=== PATIENT | female | born 1970 | race Caucasian/White ===

== ENCOUNTER 2016-09-29 19:05 | Emergency (ER) | payer OTHER ==
[2016-09-29 19:20] VITALS: RESP 16
[2016-09-29] MEDS ORDERED: RX INFO: IV CONTRAST WAS GIVEN 1 EACH MISC MISCELLANE PRN (19:41)
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
[2016-09-29 20:00] LABS: Basophils # (A) 0.1 k/uL (0-0.2); Basophils % (A) 1 %; CH 32.2; Eosinophils # (A) 0.4 k/uL (0-0.7); Eosinophils % (A) 4 %; HCT 41.9 % (34.0-46.0); HDW 2.18; HGB 14.2 gm/dL (11.4-16.0); Luc # (Auto) 0.18; Luc % (Auto) 2; Lymphocytes # (A) 2.6 k/uL (1.0-4.8); Lymphocytes % (A) 28 %; MCH 32.3 pg (25.0-35.0); MCHC 33.9 g/dL (31.0-37.0); MCV 95.2 fL (80.0-100.0); Monocytes # (A) 0.6 k/uL (0-1.0); Monocytes % (A) 7 %; Neutrophils # (A) 5.3 k/uL (1.3-7.7); Neutrophils % (A) 58 %; RDW 14.5 % (11.5-15.5); WBC 9.2 k/uL (3.8-10.6); WBC (Perox) 9.19
[2016-09-29 20:11] LABS: ALT 54 U/L (9-52); AST 40 U/L (14-36); Alcohol <10 mg/dL; Alkaline Phosphatase 95 U/L (38-126); Anion Gap 11 mmol/L; Blood Urea Nitrogen 12 mg/dL (7-17); Calcium 9.4 mg/dL (8.4-10.2); Carbon Dioxide 22 mmol/L (22-30); Chloride 105 mmol/L (98-107); Glucose 123 mg/dL (74-99); Non-African American GFR(MDRD) >60 (>60 ml/min/1.73 sqM); Potassium 4.1 mmol/L (3.5-5.1); Sodium 138 mmol/L (137-145); Total Bilirubin 0.4 mg/dL (0.2-1.3); Total Protein 7.1 g/dL (6.3-8.2)
[2016-09-29 20:20] LABS: Partial Thromboplastin Time 25.9 sec (22.0-30.0); Prothrombin Time 10.2 sec (9.0-12.0)
[2016-09-29 20:21] LABS: Creatine Kinase 56 U/L (30-135)
[2016-09-29 20:33] LABS: Creatine Kinase MB 0.4 ng/mL (0.0-2.4); Troponin I <0.012 ng/mL (0.000-0.034)
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
[2016-09-29] MEDS ORDERED: HYDROcodone/APAP 5-325MG 1 EACH TAB PO STA (21:02)
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
[2016-09-30 01:44] LABS: Appearance,Urine Clear (Clear); Bilirubin,Urine Negative (Negative); Glucose,Urine (UA) Negative (Negative); Ketones,Urine Negative (Negative); Leukocyte Esterase,Urine Negative (Negative); Nitrite,Urine Negative (Negative); Protein,Urine Negative (Negative); Specific Gravity,Urine 1.006 (1.001-1.035); UA Billing (MACRO vs. MICRO) CHEM; Urobilinogen,Urine <2.0 mg/dL (<2.0)
[2016-09-30] MEDS ORDERED: Acetaminophen-Codeine 300-30mg TAB PO STA (02:40)
[2016-09-30] MEDS ORDERED: ACET/COD 300 MG/30 MG STARTER PACK 6 TAB BTL PO STA (03:12)
[2016-09-30 03:47] VITALS: BP 131/94; PULSE 90; TEMP 97.4
== END 2016-09-30 03:15 | disposition home or self-care (01) ==
LOC: EC 19:05
DX: S19.9XXA Unspecified injury of neck, initial encounter (principal); S29.9XXA Unspecified injury of thorax, initial encounter; R00.0 Tachycardia, unspecified; R10.84 Generalized abdominal pain; I10 Essential (primary) hypertension; E78.5 Hyperlipidemia, unspecified; F31.9 Bipolar disorder, unspecified; F41.9 Anxiety disorder, unspecified; F17.200 Nicotine dependence, unspecified, uncomplicated; Z90.49 Acquired absence of other specified parts of digestive tract; Z88.6 Allergy status to analgesic agent; Z79.899 Other long term (current) drug therapy; V47.5XXA Car driver injured in collision with fixed or stationary object in traffic accident, initial encounter; Y92.410 Unspecified street and highway as the place of occurrence of the external cause
CPT/HCPCS: 99285; 36415; 93005; 86900; 86901; 80053; 82550; 82553; 84484; 85025; 85610; 85730; 86850; 81003; 80306; 80320; 71010; 72170; 72125; 70450; 71260; 74177; Q9967

== ENCOUNTER 2017-12-09 15:20 | Inpatient (IN) | payer MEDICAID, OTHER ==
[2017-12-09] MEDS ORDERED: diphenhydrAMINE 50 MG/ML 1 ML VIAL IM STA (15:58)
[2017-12-09] MEDS ORDERED: HALOPERIDOL LACTATE 5 MG/ML 1 ML VIAL IM STA (15:58)
[2017-12-09] MEDS ORDERED: LORazepam 2 MG/ML INJ IM STA (15:58)
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
[2017-12-09 17:19] LABS: Basophils % (A) 0 %; Eosinophils # (A) 0.1 k/uL (0-0.7); Eosinophils % (A) 1 %; HCT 42.2 % (34.0-46.0); HGB 14.3 gm/dL (11.4-16.0); Lymphocytes # (A) 2.1 k/uL (1.0-4.8); Lymphocytes % (A) 27 %; MCH 31.1 pg (25.0-35.0); MCV 91.4 fL (80.0-100.0); Mean Platelet Volume 7.3; Monocytes # (A) 0.5 k/uL (0-1.0); Monocytes % (A) 6 %; Neutrophils % (A) 64 %; Platelet Count 260 k/uL (150-450); RBC 4.61 m/uL (3.80-5.40); RDW 12.8 % (11.5-15.5); WBC 7.8 k/uL (3.8-10.6)
[2017-12-09 17:54] LABS: ALT 27 U/L (9-52); AST 21 U/L (14-36); Albumin 4.4 g/dL (3.5-5.0); Alkaline Phosphatase 73 U/L (38-126); Anion Gap 13 mmol/L; Blood Urea Nitrogen 13 mg/dL (7-17); Calcium 9.6 mg/dL (8.4-10.2); Carbon Dioxide 21 mmol/L (22-30); Chloride 104 mmol/L (98-107); Glucose 82 mg/dL (74-99); Potassium 3.7 mmol/L (3.5-5.1); Sodium 138 mmol/L (137-145); Total Bilirubin 0.9 mg/dL (0.2-1.3); Total Protein 6.8 g/dL (6.3-8.2)
[2017-12-09] MEDS ORDERED: MAG HYDROX/AL HYDROX/SIMETH 30 ML CUP PO PRN (19:15)
[2017-12-09] MEDS ORDERED: ZIPRASIDONE 20 MG VIAL IM PRN (19:15)
[2017-12-09] MEDS ORDERED: MAGNESIUM HYDROXIDE 2,400 MG/10 ML CUP PO PRN (19:15)
[2017-12-09] MEDS ORDERED: LORazepam 2 MG/ML INJ IM PRN (19:19)
[2017-12-09 19:53] VITALS: BMI 20.9
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
[2017-12-10 02:04] LABS: Cholesterol 249 mg/dL (<200); HDL Cholesterol 34 mg/dL (40-60); LDL Cholesterol,Calculated 195 mg/dL (0-99); Triglycerides 102 mg/dL (<150)
[2017-12-10] MEDS: NICOTINE 21MG/24HR PATCH TRANSDERM SCH (09:30)
[2017-12-10] MEDS: LORazepam 1 MG TAB PO PRN (09:32)
[2017-12-10 12:05] LABS: Hemoglobin A1C 5.2 % (4.0-6.0)
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
[2017-12-10] MEDS: ARIPiprazole 2 MG TAB PO SCH (14:04)
[2017-12-11] MEDS: LORazepam 1 MG TAB PO PRN (04:15)
[2017-12-11] MEDS: ARIPiprazole 2 MG TAB PO SCH (08:16)
[2017-12-11] MEDS: NICOTINE 21MG/24HR PATCH TRANSDERM SCH (08:17)
--- NOTE | 2017-12-11 13:06 | P.PN ---
Progress Note - Text Progress Note Date: 12/11/17 Interval History: Patient is a 47-year-old female who was seen today and she reports that she's feeling slightly better, she states that she slept somewhat last night and is not feeling as confused. She states that the auditory hallucinations are still present and she is still concerned about her daughter because she is not been able to contact her and and is unsure if she is okay or not due to what the voices were telling her. She states that she'll be suicidal if something is wrong with her daughter but denies suicidal thoughts otherwise. She reports that she still feeling jittery and anxious. Mental Status:Appearance/Attitude: Patient is dressed in a hospital gown, was found sleeping in her room, she makes intermittent eye contact and was cooperative. Behavior: Patient was jittery and anxious during the interview but did not display any psychomotor retardation Speech/Language: Patient's speech was more spontaneous, of normal volume and rhythm and she was coherent Thought Process: Patient was more goal-directed however continue to be tangential at times Thought Content: Patient reports that she continues to hear voices that are making derogatory comments as well as threats to her daughter she denied any visual hallucinations and states that she still paranoid and worried that something bad is happening to her daughter she's been unable to contact her today. Patient states that her thinking is beginning to clear and she is not feeling as confused as she was on admission. Patient states that she did sleep somewhat last night but was up and down. She reports that she is feeling jittery and anxious. She states that she is eating Suicidal/Homicidal Ideation: Patient denies any current suicidal or homicidal ideation but states that if her daughter is not okay she will think of suicide Sensorium/Cognition: Patient is alert and oriented to person, situation and date and her recent and remote memory are grossly intact and her focus and attention are improving Mood/Affect: Patient's mood is anxious jittery and paranoid and her affect is appropriate to her mood Insight/Judgment: patient's insight and judgment remain poor Assessment: patient states that she's beginning to clear and is feeling less confused but continues to have auditory hallucination and continues to feel paranoid that something is happening to her daughter and states that something has she will think about suicide. Patient did sleep 6 hours last night but she was up and down. Patient states that she's feeling jittery and anxious and requested to take something. Patient has been in her room and has not been attending groups or activities. Plan: patient continue on Abilify 2 mg and will continue to titrate the dose to target her symptoms of psychosis and mood. Patient was encouraged to attend groups or activities. Patient continues to require hospitalization to further stabilize her mood and psychotic symptoms.
[2017-12-11] MEDS: hydrOXYzine PAMOATE 25 MG CAP PO PRN (17:26)
[2017-12-11 19:27] LABS: Appearance,Urine Clear (Clear); Bilirubin,Urine Negative (Negative); Blood,Urine Negative (Negative); Color,Urine Light Yellow; Glucose,Urine (UA) Negative (Negative); Ketones,Urine Negative (Negative); Leukocyte Esterase,Urine Negative (Negative); Nitrite,Urine Negative (Negative); Protein,Urine Negative (Negative); Specific Gravity,Urine 1.004 (1.001-1.035); Urobilinogen,Urine <2.0 mg/dL (<2.0)
[2017-12-11 19:39] LABS: Amphetamine Screen,Urine Detected (NotDetected); Barbiturate Screen,Urine Not Detected (NotDetected); Benzodiazepines Screen,Urine Detected (NotDetected); Cocaine Screen,Urine Not Detected (NotDetected); Methadone Screen, Urine Not Detected (NotDetected); Opiate Screen,Urine Not Detected (NotDetected); Oxycodone Screen, Urine Not Detected (NotDetected); Phencyclidine Screen,Urine Not Detected (NotDetected); Tricyclic Antidepressant,Urine Not Detected (NotDetected); Urn Cannabinoid Scrn Detected (NotDetected)
[2017-12-12] MEDS ORDERED: LORazepam 1 MG TAB ONE (00:39)
[2017-12-12] MEDS: NICOTINE 21MG/24HR PATCH TRANSDERM SCH (08:21)
[2017-12-12] MEDS: ARIPiprazole 2 MG TAB PO SCH (08:22)
[2017-12-12] MEDS: ACETAMINOPHEN TAB 325 MG TAB PO PRN (08:22)
[2017-12-12] MEDS: hydrOXYzine PAMOATE 25 MG CAP PO PRN ×3 (08:22→20:44)
[2017-12-12] MEDS: LORazepam 1 MG TAB PO PRN ×2 (10:55→18:05)
--- NOTE | 2017-12-12 14:17 | P.PN ---
Progress Note - Text Progress Note Date: 12/12/17 Interval History: Patient is a 47-year-old female who was seen today and she reports that her thinking is clearing, she states that she was able to speak with her daughter yesterday and so she is no longer worried something is happening to her. Patient states that she still suspicious about things and still is hearing voices but they are getting less. She states that she has not been attending groups because she is continuing to rest. She states that she had not been sleeping at all when she was at home due to taking Adderall. When I questioned how much Adderall she had been taking she stated that she had been taking twice the prescribed dose which would've been equivalent of 120 mg a day. Patient states that she slept about 5 hours last night Mental Status: Appearance/Attitude: Patient is dressed in a hospital gown, makes intermittent eye contact and was cooperative Behavior: Patient did not exhibit any psychomotor agitation or retardation. Speech/Language: Patient's speech is spontaneous of normal volume and rhythm and she is coherent. Thought Process: Patient's thoughts are more goal-directed, she is able to respond to questions appropriately Thought Content: Patient states that she continues to hear voices although they are declining in intensity, she states that she is still suspicious about things occurring to her daughter but hasn't spoken with her and knows that she is okay. She denied any for visual hallucinations. Patient states that she slept about 5 hours last night and continues to feel tired. Suicidal/Homicidal Ideation: Patient denied any suicidal or homicidal ideation at this time Sensorium/Cognition: Patient is alert and oriented to person, place, time and her recent and remote memory are grossly intact. Patient states that her focus and concentration are improving and she feels that her thinking is more organized Mood/Affect: Patient's mood is less guarded and her affect is appropriate to her mood, patient states that she had a good response to the Vistaril for her jitteriness. Insight/Judgment: Patient's insight and judgment are fair Assessment: Patient shows improved thinking, she is more organized in her thoughts and better able to respond to questions. She continues to report voices which she states are declining in intensity as well as still feeling suspicious but was able to speak with her daughter yesterday and knows that nothing is wrong with her. Patient states that she continues to stay in bed and sleeping because she states she needs to rest. Patient was using double the amount of Adderall at home as she was prescribed. Patient reports no side effects from the Abilify. She is not attending groups or activities Plan: Patient's Abilify will be increased to 5 mg to target her psychotic symptoms, she continues to have Vistaril 25 mg every 6 hours as needed for her complaints of anxiety and patient continues to require hospitalization to further target her psychotic symptoms. Patient was encouraged to stay awake during the day and attend groups and activities.
[2017-12-13] MEDS: hydrOXYzine PAMOATE 25 MG CAP PO PRN ×3 (08:02→20:29)
[2017-12-13] MEDS: ARIPiprazole 5 MG TAB PO SCH (08:03)
[2017-12-13] MEDS: NICOTINE 21MG/24HR PATCH TRANSDERM SCH (08:19)
[2017-12-13] MEDS: LORazepam 1 MG TAB PO PRN ×2 (12:12→19:13)
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
[2017-12-14] MEDS ORDERED: LORazepam 1 MG TAB ONE (03:08)
[2017-12-14] MEDS ORDERED: hydrOXYzine PAMOATE 25 MG CAP ONE (03:08)
[2017-12-14] MEDS: ARIPiprazole 5 MG TAB PO SCH (09:03)
[2017-12-14] MEDS: hydrOXYzine PAMOATE 25 MG CAP PO PRN ×2 (09:04→16:33)
[2017-12-14] MEDS ORDERED: ARIPiprazole 5 MG TAB PO STA (10:32)
[2017-12-14] MEDS: NICOTINE 21MG/24HR PATCH TRANSDERM SCH (10:40)
[2017-12-14] MEDS: LORazepam 0.5 MG TAB PO PRN ×2 (10:56→22:50)
--- NOTE | 2017-12-14 12:23 | P.PN ---
Progress Note - Text Progress Note Date: 12/14/17 Interval History: Patient is a 47-year-old female who was seen today and she reports that she is still not sleeping well at night, she states she has been ruminating about everything. She states that she continues to think about all the stuff that his occurred in the past and is continuing to feel anxious and upset about it. She states that she is not worried about something horrible happening but does ruminate about past events. She reports that she is not having any side effects from the medication and states that she still feels anxious and on edge during the day. Patient states that she has attempted to attend some groups and activities but didn't sleep at all last night and is extremely tired this morning Mental Status: Appearance/Attitude: Patient is casually dressed and makes good eye contact and was cooperative. Behavior: Patient does not display any psychomotor agitation or retardation however she appeared edgy and anxious this morning Speech/Language: Patient's speech is spontaneous of normal volume and rhythm and she is coherent Thought Process: Patient is goal-directed she is more organized in her thoughts and still some difficulty discussing past events especially regarding her relationship with her ex-boyfriend. Thought Content: Agent denies any auditory or visual hallucinations and no delusions or paranoid ideation were elicited. She states that she continues to ruminate and go over everything but is not worried about something horrible happening. Patient states that she didn't sleep at all last night and is feeling anxious and jittery during the day. She states that she is eating fairly well. Suicidal/Homicidal Ideation: Patient denies any current suicidal or homicidal ideation Sensorium/Cognition: Patient is alert and oriented to person, place, and time and her recent and remote memory are grossly intact. Mood/Affect: Patient's mood remains edgy and depressed, her affect appropriate to her mood Insight/Judgment: Patient's insight and judgment are fair Assessment: Patient states that she didn't sleep well at all last night due to ruminating about past events but she states she is not as worried about something horrible happening to her daughter or to herself. She states that she is thinking better, is better able to discuss her concerns in our meeting and she was on admission. There is still some difficulty in her discussing past events especially regarding her ex-boyfriend. Patient states that she is not feeling paranoid and is not hearing voices. Patient is attempting to attend groups and activities. Patient reports no side effects from the medication. Plan: Patient's Abilify will be increased to 10 mg to target her mood and psychotic symptoms. Patient will also be given melatonin 3 mg at bedtime to assist with sleep and continue on Vistaril 25 every 6 when necessary to target her anxiety. Patient was encouraged to attend groups and activities. Patient continues to require hospitalization to further stabilize her mood and psychotic symptoms.
[2017-12-14] MEDS: ACETAMINOPHEN TAB 325 MG TAB PO PRN (16:30)
[2017-12-14] MEDS: MELATONIN 3 MG TABLET PO SCH (20:56)
[2017-12-15] MEDS: hydrOXYzine PAMOATE 25 MG CAP PO PRN ×3 (04:01→20:56)
[2017-12-15] MEDS: ACETAMINOPHEN TAB 325 MG TAB PO PRN (04:02)
[2017-12-15] MEDS: NICOTINE 21MG/24HR PATCH TRANSDERM SCH (08:09)
[2017-12-15] MEDS: LORazepam 0.5 MG TAB PO PRN ×2 (08:09→18:15)
[2017-12-15] MEDS: ARIPiprazole 10 MG TAB PO SCH (08:09)
--- NOTE | 2017-12-15 11:54 | P.PN ---
Progress Note - Text Interval history: The patient is found the hallway she follows me to an interview room. She reports feeling distressed as she is not sleeping. She states she knows that they are recording she is sleeping 7 hours a night but she states it is not restful and she feels tired all of the time. She describes having ongoing anxiety throughout the day. She asked that I restart her on Seroquel or Depakote or "something powerful". We discussed the changes her brain is undergoing given her recent history of stimulants. She admits to excessively using Adderall for numerous days prior to this admission. She reports that she is eating and attempting to attend groups. Mental status exam: The patient is alert she seated calmly in the chair. She is cooperative. She describes a distraught mood and describes feelings of anxiety. She states she feels exhausted. She is reporting no suicidal or homicidal thoughts. She endorses no auditory or visual hallucinations stating "those are much better". She relays no feelings of persecution or paranoia. Insight and judgment limited. She demonstrates no verbal or physical aggressiveness she demonstrates no abnormal involuntary movements. Plan: The patient will continue on her current medications I will increase the strength of the Vistaril. We will continue to monitor her for safety. Vital signs reviewed.
[2017-12-15] MEDS: MELATONIN 3 MG TABLET PO SCH (20:55)
[2017-12-16] MEDS: LORazepam 0.5 MG TAB PO PRN ×2 (00:20→13:25)
[2017-12-16] MEDS: hydrOXYzine PAMOATE 25 MG CAP PO PRN ×2 (08:10→18:02)
[2017-12-16] MEDS: NICOTINE 21MG/24HR PATCH TRANSDERM SCH (08:11)
[2017-12-16] MEDS: ARIPiprazole 10 MG TAB PO SCH (08:11)
--- NOTE | 2017-12-16 10:11 | P.PN ---
Progress Note - Text Interval history: The patient is found in her room she follows me to an interview room. She reports that she is doing much better and that she's had an epiphany. She feels that after she slept throughout the night she understands things better and feels less paranoid. She has no questions or concerns regarding the Abilify. She states that she does not wish to take Adderall any longer. Mental status exam: The patient is awake she is mildly disheveled hygiene is adequate she is dressed in her own clothing. She reports her mood is much improved and she feels much better after sleeping last night. She is endorsing no auditory or visual hallucinations she is endorsing no specific delusions but there may still be some residual delusional thought content. Thought process can be linear but she becomes briefly disorganized at times. She demonstrates no verbal or physical aggressiveness. She remains calmly seated in the chair for the duration of the session. Speech is fluent spontaneous nonpressured. Insight and judgment slowly improving. Plan: The patient will continue on her current psychotropic medications. We will continue to monitor her for safety she is encouraged to participate in the milieu.
[2017-12-16] MEDS: MELATONIN 3 MG TABLET PO SCH (20:52)
[2017-12-17] MEDS: LORazepam 0.5 MG TAB PO PRN ×3 (02:32→20:37)
[2017-12-17 06:58] VITALS: RESP 16
[2017-12-17] MEDS: NICOTINE 21MG/24HR PATCH TRANSDERM SCH (08:49)
[2017-12-17] MEDS: ARIPiprazole 10 MG TAB PO SCH (08:50)
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
[2017-12-17] MEDS: hydrOXYzine PAMOATE 25 MG CAP PO PRN (15:59)
[2017-12-17] MEDS: MELATONIN 3 MG TABLET PO SCH (20:37)
[2017-12-18] MEDS: hydrOXYzine PAMOATE 25 MG CAP PO PRN (06:25)
[2017-12-18 06:31] VITALS: BP 152/68; PULSE 77; TEMP 97.8
[2017-12-18] MEDS: LORazepam 0.5 MG TAB PO PRN (08:21)
[2017-12-18] MEDS: NICOTINE 21MG/24HR PATCH TRANSDERM SCH (08:22)
[2017-12-18] MEDS: ARIPiprazole 10 MG TAB PO SCH (08:22)
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
== END 2017-12-18 12:26 | disposition home or self-care (01) | DRG 897 ==
LOC: EC 15:20 → 3MHU 18:26
PROVIDERS: ADMIT Psychiatry & Neurology Psychiatry; ATTEND Psychiatry & Neurology Psychiatry
DX: F15.159 Other stimulant abuse with stimulant-induced psychotic disorder, unspecified (principal); F41.9 Anxiety disorder, unspecified; I10 Essential (primary) hypertension; Z79.899 Other long term (current) drug therapy; Z91.5 Personal history of self-harm; Z88.8 Allergy status to other drugs, medicaments and biological substances
CPT/HCPCS: 36415; 80053; 80061; 80306; 81003; 81025; 82075; 83036; 84443; 85025; 96372; 99285

== ENCOUNTER 2018-10-21 17:17 | Observation (INO) | payer OTHER ==
[2018-10-21] MEDS ORDERED: ONDANSETRON 4 MG/2 ML VIAL IVP STA (18:08)
[2018-10-21] MEDS ORDERED: SODIUM CHLORIDE 0.9% 1,000 ML IV ONE (18:08)
[2018-10-21] MEDS ORDERED: ASPIRIN 81 MG PO STA (18:18)
[2018-10-21 18:20] LABS: Basophils # (A) 0.1 k/uL (0-0.2); Basophils % (A) 1 %; Eosinophils # (A) 0.3 k/uL (0-0.7); Eosinophils % (A) 3 %; HCT 48.3 % (34.0-46.0); HGB 15.9 gm/dL (11.4-16.0); Lymphocytes # (A) 3.2 k/uL (1.0-4.8); Lymphocytes % (A) 33 %; MCH 30.5 pg (25.0-35.0); MCV 92.6 fL (80.0-100.0); Mean Platelet Volume 7.5; Monocytes # (A) 0.3 k/uL (0-1.0); Monocytes % (A) 4 %; Neutrophils # (A) 5.7 k/uL (1.3-7.7); Neutrophils % (A) 59 %; Platelet Count 328 k/uL (150-450); RBC 5.22 m/uL (3.80-5.40); WBC 9.7 k/uL (3.8-10.6)
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
[2018-10-21 18:30] LABS: ALT 43 U/L (9-52); AST 28 U/L (14-36); Albumin 4.8 g/dL (3.5-5.0); Alkaline Phosphatase 70 U/L (38-126); Anion Gap 12 mmol/L; Blood Urea Nitrogen 9 mg/dL (7-17); Calcium 9.9 mg/dL (8.4-10.2); Carbon Dioxide 21 mmol/L (22-30); Chloride 109 mmol/L (98-107); Glucose 97 mg/dL (74-99); Potassium 3.7 mmol/L (3.5-5.1); Sodium 142 mmol/L (137-145); Total Bilirubin 0.3 mg/dL (0.2-1.3); Total Protein 7.7 g/dL (6.3-8.2)
--- NOTE | 2018-10-21 19:02 | XR ---
EXAMINATION TYPE: XR chest 2V DATE OF EXAM: 10/21/2018 COMPARISON: Prior chest x-ray 09/29/2016 HISTORY: Shortness of breath, chest pain TECHNIQUE: Frontal and lateral views of the chest are obtained. FINDINGS: There is no focal air space opacity, pleural effusion, or pneumothorax seen. The cardiac silhouette size is within normal limits. The osseous structures are intact. There are overlying car diac leads. IMPRESSION: No acute cardiopulmonary process.
[2018-10-21] MEDS ORDERED: NALOXONE 0.4 MG/ML 1 ML VIAL IV PRN (21:03)
[2018-10-22] MEDS: PRAZOSIN 1 MG CAP PO SCH ×2 (00:15→22:40)
[2018-10-22 04:12] LABS: Basophils % (A) 0 %; Eosinophils # (A) 0.3 k/uL (0-0.7); Eosinophils % (A) 4 %; HCT 42.6 % (34.0-46.0); HGB 13.8 gm/dL (11.4-16.0); Lymphocytes # (A) 1.9 k/uL (1.0-4.8); Lymphocytes % (A) 28 %; MCH 30.3 pg (25.0-35.0); MCHC 32.3 g/dL (31.0-37.0); MCV 93.9 fL (80.0-100.0); Monocytes # (A) 0.4 k/uL (0-1.0); Monocytes % (A) 6 %; Neutrophils % (A) 60 %; Platelet Count 275 k/uL (150-450); RBC 4.54 m/uL (3.80-5.40); RDW 13.9 % (11.5-15.5); WBC 6.8 k/uL (3.8-10.6)
[2018-10-22 04:23] LABS: Anion Gap 4 mmol/L; Blood Urea Nitrogen 13 mg/dL (7-17); Calcium 9.1 mg/dL (8.4-10.2); Carbon Dioxide 23 mmol/L (22-30); Chloride 112 mmol/L (98-107); Glucose 121 mg/dL (74-99); Potassium 4.1 mmol/L (3.5-5.1); Sodium 139 mmol/L (137-145)
[2018-10-22 08:26] LABS: Cholesterol 212 mg/dL (<200); HDL Cholesterol 31 mg/dL (40-60); LDL Cholesterol,Calculated 142 mg/dL (0-99); Triglycerides 193 mg/dL (<150)
[2018-10-22] MEDS ORDERED: ALPRAZolam 0.5 MG TAB PO PRN (08:42)
[2018-10-22] MEDS ORDERED: ATORVASTATIN 80 MG TAB PO STA (08:42)
[2018-10-22] MEDS ORDERED: NITROGLYCERIN SL TABS 0.4 MG TAB SUBLINGUAL PRN ×2 (08:42→11:01)
[2018-10-22] MEDS ORDERED: SODIUM CHLORIDE 0.9% 1,000 ML in EMPTY BAG 1 BAG IV ONE (08:42)
[2018-10-22] MEDS ORDERED: ALPRAZolam 0.25 MG TAB PO PRN (08:42)
[2018-10-22] MEDS ORDERED: ASPIRIN 325 MG TAB PO STA (08:42)
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
[2018-10-22] MEDS ORDERED: LIDOCAINE 1% INJ 10MG/ML (20 ML MDV) ONE (09:44)
[2018-10-22] MEDS ORDERED: VERAPAMIL 2.5 MG/ML 2 ML AMP ONE (09:44)
[2018-10-22] MEDS ORDERED: HEPARIN SODIUM 1,000 UN/ML (10ML VL) ONE (09:44)
[2018-10-22] MEDS ORDERED: SODIUM CHLORIDE 0.9% 1,000 ML IV ONE (09:50)
[2018-10-22] MEDS ORDERED: MIDAZOLAM (PF) 2 MG/2 ML VIAL IVP ONE ×2 (10:00→10:19)
[2018-10-22] MEDS ORDERED: LIDOCAINE 1% INJ 10MG/ML (20 ML MDV) SQ ONE ×2 (10:05→10:20)
[2018-10-22] MEDS ORDERED: HYDROmorphone 1 MG/ML 1 ML SYRINGE ONE (10:09)
[2018-10-22] MEDS ORDERED: VERAPAMIL SYRINGE (5 MG/10 ML) INTRAARTER ONE (10:11)
[2018-10-22] MEDS ORDERED: HEPARIN SODIUM 1,000 UN/ML (10ML VL) IV ONE (10:12)
[2018-10-22] MEDS ORDERED: HYDROmorphone 1 MG/ML 1 ML SYRINGE IVP ONE (10:12)
--- NOTE | 2018-10-22 10:15 | ECHOF ---
Referral Reason:cp, sob MEASUREMENTS -------- HEIGHT: 162.6 cm WEIGHT: 61.2 kg BP: 112/74 RVIDd: 2.8 cm (< 3.3) IVSd: 1.4 cm (0.6 - 1.1) LVIDd: 4.1 cm (3.9 - 5.3) LVPWd: 1.3 cm (0.6 - 1.1) IVSs: 1.8 cm LVIDs: 2.9 cm LVPWs: 1.4 cm LA Diam: 2.6 cm (2.7 - 3.8) LAESV Index (A-L): 12.68 ml/m Ao Diam: 3.5 cm (2.0 - 3.7) AV Cusp: 2.3 cm (1.5 - 2.6) MV EXCURSION: 16.269 mm (> 18.000) MV EF SLOPE: 76 mm/s (70 - 150) EPSS: 0.6 cm MV E Valdemar: 0.65 m/s MV DecT: 293 ms MV A Valdemar: 0.78 m/s MV E/A Ratio: 0.83 AV maxP.08 mmHg AV meanP.49 mmHg FINDINGS -------- Sinus rhythm. This was a technically adequate study. The left ventricular size is normal. There is moderate concentric left ventricular hypertrophy. O verall left ventricular systolic function is normal with, an EF between 60 - 65 %. The right ventricle is normal in size. Normal LA size by volume 22+/-6 ml/m2. The right atrium is normal in size. Aneurysmal Interatrial septum. The aortic valve was not well visualized. There is mild aortic valve sclerosis. There is mild aor tic stenosis present. Peak/mean gradient across the Aortic Valve is 17.08mmHg / 8.49mmHg. Mild mitral annular calcification present. The tricuspid valve appears structurally normal. The pulmonic valve was not well visualized. The aortic root size is normal. Normal inferior vena cava with normal inspiratory collapse consistent with estimated right atrial pre ssure of 5 mmHg. There is no pericardial effusion. CONCLUSIONS -------- 1. Sinus rhythm. 2. This was a technically adequate study. 3. The left ventricular size is normal. 4. There is moderate concentric left ventricular hypertrophy. 5. Overall left ventricular systolic function is normal with, an EF between 60 - 65 %. 6. The right ventricle is normal in size. 7. Normal LA size by volume 22+/-6 ml/m2. 8. The right atrium is normal in size. 9. Aneurysmal Interatrial septum. 10. The aortic valve was not well visualized. 11. There is mild aortic valve sclerosis. 12. There is mild aortic stenosis present. 13. Peak/mean gradient across the Aortic Valve is 17.08mmHg / 8.49mmHg. 14. Mild mitral annular calcification present. 15. The tricuspid valve appears structurally normal. 16. The pulmonic valve was not well visualized. 17. The aortic root size is normal. 18. Normal inferior vena cava with normal inspiratory collapse consistent with estimated right atrial pressure of 5 mmHg. 19. There is no pericardial effusion. COMPUTER SYSTEMS SOFTWARE ARCHITECT: Marissa Gomez RDCS
[2018-10-22] MEDS ORDERED: NITROGLYCERIN 1000MCG/10ML SYRINGE INTRACORON ONE (10:25)
[2018-10-22] MEDS ORDERED: BIVALIRUDIN BOLUS 250 MG/50 ML IV ONE (10:27)
[2018-10-22] MEDS ORDERED: CLOPIDOGREL 75 MG TAB ONE (10:32)
[2018-10-22] MEDS ORDERED: fentaNYL (PF) 50 MCG/ML 2 ML AMP ONE (10:38)
[2018-10-22] MEDS ORDERED: CLOPIDOGREL 75 MG TAB PO ONE (10:39)
[2018-10-22] MEDS ORDERED: fentaNYL (PF) 50 MCG/ML 2 ML AMP IVP ONE (10:40)
[2018-10-22] MEDS ORDERED: IOPAMIDOL-370 100ML BTL INJ ONE ×2 (10:44→10:54)
[2018-10-22] MEDS ORDERED: MAG HYDROX/AL HYDROX/SIMETH 30 ML CUP PO PRN (11:01)
[2018-10-22] MEDS ORDERED: RX INFO: IV CONTRAST WAS GIVEN 1 EACH MISC MISCELLANE PRN (11:01)
[2018-10-22] MEDS ORDERED: ATROPINE SULFATE 0.1 MG/ML 10ML SYRINGE IV PRN (11:01)
[2018-10-22] MEDS ORDERED: ZOLPIDEM 5 MG TAB PO PRN (11:01)
[2018-10-22] MEDS ORDERED: SODIUM CHLORIDE 0.9% 1,000 ML IV SCH (11:15)
[2018-10-22] MEDS ORDERED: BIVALIRUDIN 250 MG in SODIUM CHLORIDE 0.9% 50 ML IV ONE (11:19)
[2018-10-22 11:58] LABS: Hemoglobin A1C 5.5 % (4.0-6.0)
--- NOTE | 2018-10-22 12:12 | CC ---
CARDIAC CATHETERIZATION REPORT CARDIAC CATHETERIZATION AND PERCUTANEOUS CORONARY INTERVENTION: DATE OF SERVICE: October 22, 2017 PERFORMING PHYSICIAN: Gary Bobo MD. PROCEDURE PERFORMED: 1. Selective right and left coronary angiogram. 2. Left heart catheterization. 3. Successful stenting of the mid RCA using 3.25 x 15 mm Xience VANESSA with good angiographic results and reduction of stenosis from 80% to 0%. INDICATION: This is a pleasant 48-year-old female patient with hypertension, dyslipidemia, and history of smoking, who presented to the emergency room complaining of chest discomfort. The chest discomfort was concerning for angina. It is intermittent and exertional only. Because of that, a heart catheterization was advised. APPROACH: Right common femoral artery. COMPLICATION: None. LEVEL OF SEDATION: Moderate with sedation length of 50 minutes. PROCEDURE DESCRIPTION: After obtaining an informed consent, the patient was brought to the cardiac laborer [facility]. Initially I cannulated the right radial artery and I placed a 5-Ukrainian sheath in the right radial artery. Upon advancing the JR4 catheter through the right radial sheath, the patient was experiencing pain and because of that, I aborted the right radial approach and I did decide to go from the right groin. The right common femoral artery was cannulated using micropuncture technique. Then I placed a 6-Ukrainian sheath in the right common femoral artery. Selective right and left coronary angiogram performed using JR4 and JL3.5 catheters. Left heart catheterization was performed using the JR4 catheter, which flipped into the LV then I did pullback across the aortic valve. I did intervene on the right coronary artery, please see a separate paragraph for that. SELECTIVE CORONARY ANGIOGRAM: 1. The right coronary artery is a large caliber vessel. It is a dominant vessel. The RCA has mild disease in its ostium and severe disease in the midportion appeared to be in the range of 80%. 2. The left main has mild disease only in the range of 20% to 30%. Bifurcates into left circumflex and left anterior descending artery. 3. The left circumflex is a large caliber vessel. It is a nondominant vessel. The proximal circumflex appeared to be normal and gives rise into a first OM branch which appeared to be normal. The mid circumflex continued after that as a small- caliber vessel in the AV groove. 4. The LAD: The proximal LAD appeared to be angiographically normal. The mid LAD has a lesion appeared to be in the range of 50%. This is by the bifurcation of the first diagonal branch which has mild disease only. The LAD distally appeared to be angiographically normal. HEMODYNAMICS: The LVEDP was about 8 mmHg without significant gradient across the aortic valve. PCI OF THE RCA: Anticoagulation was initiated using Angiomax. I attempted cannulating the right coronary artery using JR4 and I was unable. Then Sixto right posterior and I was unable. Finally I was able to cannulate the right coronary artery using JR3.5 guide. Subsequently I did wire it using a run-through wire. After that I did balloon angioplasty using 3.0 x 12 mm balloon before I deployed a 3.25 x 15 mm Xience drug- eluting stent where the stent was positioned under fluoroscopy guidance and deployed under 18 atmospheres for 20 seconds with the following angiogram showing good angiographic results and the procedure was completed without any complication. CONCLUSION: 1. Intermittent episodes of chest discomfort concerning for angina. 2. Severe disease involving the mid right coronary artery. 3. Mild to moderate disease involving the left coronary system. 4. Successful stenting of the mid RCA using 3.25 x 15 mm Xience VANESSA with excellent angiographic results and reduction of stenosis from 80% to 0%. POSTPROCEDURE MANAGEMENT: 1. Dual antiplatelet therapy. 2. Risk factor modifications. 3. Follow up with the patient. MMODL / IJN: [id number] /
--- NOTE | 2018-10-22 16:24 | P.HPIM ---
History of Present Illness 48-year-old pleasant female in the known smoking history hypertension dyslipidemia came in with complaints of chest pain did have significant family history chest pain was the precordial pressure-like somewhat typical associated shortness of breath, EKG did not show any significant abnormalities. Because of the typical nature of the chest pain patient underwent cardiac catheterization which showed significant occlusion in mid RCA which was stented and there was a 50% occlusion at the LAD and OM1 bifurcation. Patient is presently post cardiac catheterization with a FemoStop in the right groin area and attempted and failed cannulation of the right radial. Counseling regarding smoking cessation was provided patient is on dual antiplatelet therapy beta michelle and statin Review of Systems REVIEW OF SYSTEMS: CONSTITUTIONAL: No fever, no malaise, no fatigue. HEENT: No recent visual problems or hearing problems. Denied any sore throat. CARDIOVASCULAR: No orthopnea, PND, no palpitations, no syncope. PULMONARY: no cough, no hemoptysis. GASTROINTESTINAL: No diarrhea, no nausea, no vomiting, no abdominal pain. NEUROLOGICAL: No headaches, no weakness, no numbness. HEMATOLOGICAL: Denies any bleeding or petechiae. GENITOURINARY: Denies any burning micturition, frequency, or urgency. MUSCULOSKELETAL/RHEUMATOLOGICAL: Denies any joint pain, swelling, or any muscle pain. ENDOCRINE: Denies any polyuria or polydipsia. The rest of the 14-point review of systems is negative. Past Medical History Past Medical History: Hyperlipidemia, Hypertension Additional Past Medical History / Comment(s): chronic neck pain History of Any Multi-Drug Resistant Organisms: None Reported Past Surgical History: Appendectomy, Orthopedic Surgery Additional Past Surgical History / Comment(s): neck injury, cervical spine surgery x 2 Past Anesthesia/Blood Transfusion Reactions: No Reported Reaction Past Psychological History: ADD/ADHD, Anxiety, Depression, PTSD Smoking Status: Current every day smoker Past Alcohol Use History: None Reported Past Drug Use History: None Reported, Marijuana - Past Family History Mother Family Medical History: Hyperlipidemia, Hypertension Additional Family Medical History / Comment(s): bipolar Father Family Medical History: Coronary Artery Disease (CAD), CVA/TIA Brother(s) Family Medical History: Coronary Artery Disease (CAD) Son(s) Family Medical History: No Reported History Family Additional Family Medical History / Comment(s): Unable to obtain family history due to acute psychosis Medications and Allergies Home Medications Medication Instructions Recorded Confirmed Type DULoxetine HCL [Cymbalta] 30 mg PO DAILY 10/21/18 10/21/18 History Focus 1 tab PO DAILY 10/21/18 10/21/18 History Multivitamins, Thera [Multivitamin 1 tab PO DAILY 10/21/18 10/21/18 History (formulary)] Prazosin [Minipress] 10 mg PO HS 10/21/18 10/21/18 History Allergies Allergy/AdvReac Type Severity Reaction Status Date / Time ketorolac [From Toradol] Allergy NOSE ITCH Verified 10/21/18 23:04 latex Allergy Rash/Hives Verified 10/21/18 23:11 Physical Exam Vitals: Vital Signs Temp Pulse Pulse Resp BP BP BP 10/22/18 16:15 60 16 142/86 10/22/18 16:00 61 16 132/84 10/22/18 15:00 20 163/99 10/22/18 14:50 20 140/65 10/22/18 13:50 20 138/70 10/22/18 13:35 20 127/69 10/22/18 13:20 20 124/80 10/22/18 12:50 20 130/82 10/22/18 12:20 20 138/69 10/22/18 11:50 18 127/69 10/22/18 11:35 20 114/62 10/22/18 11:20 18 113/69 10/22/18 08:43 98.2 F 88 18 112/74 10/22/18 08:00 88 18 10/22/18 07:05 98.2 F 88 18 112/74 10/22/18 03:13 98.3 F 85 18 109/68 10/22/18 03:08 18 10/22/18 00:00 97.6 F 73 18 116/76 10/21/18 23:25 18 10/21/18 22:30 98.2 F 80 18 135/71 10/21/18 21:00 71 20 126/75 10/21/18 19:00 89 20 114/70 10/21/18 18:27 97 20 126/87 10/21/18 17:23 98.1 F 94 18 139/98 Pulse Ox 10/22/18 16:15 99 10/22/18 16:00 99 10/22/18 15:00 95 10/22/18 14:50 98 10/22/18 13:50 95 10/22/18 13:35 97 10/22/18 13:20 95 10/22/18 12:50 95 10/22/18 12:20 95 10/22/18 11:50 97 10/22/18 11:35 95 10/22/18 11:20 95 10/22/18 08:43 95 10/22/18 08:00 10/22/18 07:05 95 10/22/18 03:13 94 L 10/22/18 03:08 10/22/18 00:00 97 10/21/18 23:25 10/21/18 22:30 98 10/21/18 21:00 97 10/21/18 19:00 96 10/21/18 18:27 99 10/21/18 17:23 99 Intake and Output 10/22/18 10/22/18 10/22/18 06:59 14:59 22:59 Intake Total 510 Balance 510 Intake: IV 310 Sodium Chloride 0.9% 1, 100 000 ml @ 100 mls/hr IV . Q10H [facility] Rx#:[id number] Oral 200 Other: Voiding Method Toilet Toilet # Voids 2 PHYSICAL EXAMINATION: GENERAL: The patient is alert and oriented x3, not in any acute distress. Well developed, well nourished. HEENT: Pupils are round and equally reacting to light. EOMI. No scleral icterus. No conjunctival pallor. Normocephalic, atraumatic. No pharyngeal erythema. No thyromegaly. CARDIOVASCULAR: S1 and S2 present. No murmurs, rubs, or gallops. PULMONARY: Chest is clear to auscultation, no wheezing or crackles. ABDOMEN: Soft, nontender, nondistended, normoactive bowel sounds. No palpable organomegaly. MUSCULOSKELETAL: No joint swelling or deformity. EXTREMITIES: No cyanosis, clubbing, or pedal edema. Right sided femstop NEUROLOGICAL: Gross neurological examination did not reveal any focal deficits. SKIN: No rashes. Results CBC & Chem 7: 10/22/18 03:59 10/22/18 03:59 Labs: Abnormal Lab Results - Last 24 Hours (Table) 10/21/18 10/21/18 10/22/18 Range/Units 18:02 18:02 03:59 Hct 48.3 H (34.0-46.0) % Chloride 109 H 112 H (98-107) mmol/L Carbon Dioxide 21 L (22-30) mmol/L Glucose 121 H (74-99) mg/dL Triglycerides (<150) mg/dL Cholesterol (<200) mg/dL LDL Cholesterol, Calc (0-99) mg/dL HDL Cholesterol (40-60) mg/dL 10/22/18 Range/Units 03:59 Hct (34.0-46.0) % Chloride (98-107) mmol/L Carbon Dioxide (22-30) mmol/L Glucose (74-99) mg/dL Triglycerides 193 H (<150) mg/dL Cholesterol 212 H (<200) mg/dL LDL Cholesterol, Calc 142 H (0-99) mg/dL HDL Cholesterol 31 L (40-60) mg/dL Thrombosis Risk Factor Assmnt - Choose All That Apply Any of the Below Risk Factors Present?: Yes Each Factor Represents 1 point: Age 41-60 years Other Risk Factors: No Other congenital or acquired thrombophilia - If yes, enter type in comment: No Thrombosis Risk Factor Assessment Total Risk Factor Score: 1 Thrombosis Risk Factor Assessment Level: Low Risk Assessment and Plan Plan: -Chest pain, unstable angina: Status post cardiac catheterization and stenting of mid RCA echocardiac exam was done which showed normal ejection fraction -Nicotine abuse: Counseling was provided -Hyperlipidemia -Hypertension -Depression For above-mentioned chronic problems patient will be resumed and continued on appropriate home medications
[2018-10-22] MEDS: HYDROcodone/APAP 7.5-325MG 1 EACH TAB PO PRN ×2 (16:26→22:46)
[2018-10-22] MEDS ORDERED: ATORVASTATIN 20 MG TAB PO SCH (21:00)
[2018-10-23 04:41] VITALS: TEMP 98.2
[2018-10-23 07:35] VITALS: RESP 16
[2018-10-23] MEDS ORDERED: DULoxetine HCL 30 MG CAPSULE.DR PO SCH (09:00)
[2018-10-23] MEDS ORDERED: ASPIRIN 81 MG PO SCH (10:30)
[2018-10-23] MEDS ORDERED: CLOPIDOGREL 75 MG TAB PO SCH (11:02)
[2018-10-23 11:09] VITALS: BP 138/77; PULSE 86
[2018-10-23 11:27] VITALS: BMI 23.1
--- NOTE | 2018-10-23 15:22 | P.PN ---
Subjective This is a pleasant 48-year-old female past medical history significant for hypertension, dyslipidemia, depression, PTSD, daily marijuana use and chronic nicotine dependence. 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 She states her brother suffered a myocardial infarction at the age of 39 causing his and her father was recommended bypass surgery in his 60s but never had an dying at 72. We have been asked to see her in consultation secondary to chest discomf ort. She states over the previous 2-3 weeks she has noticed increased overall fatigue. Then over the last weekend she noticed on 3 separate occasions when she would walk up stairs she would become short of breath, lightheaded and have a tightness in the upper mid-sternal region. Then while she was attempting to take a walk she again had symptoms of exertional chest tightness and shortness of breath. Her symptoms would improve with rest. Patient was initially seen in consultation on the observation unit by Dr. Johnson, recommended to undergo cardiac catheterization. Subsequent to that patient underwent intravascular stenting of the right coronary artery. She was seen and examined this morning, denied any chest pain or difficulty in breathing. Hemodynamically she was stable. Let pressure 134/70 with a heart rate in the 80s, 98% on room air. Creatinine today 0.6. Objective - Vital Signs Vital signs: Vital Signs Temp 98.2 F 10/23/18 07:31 Pulse 86 10/23/18 11:06 Resp 16 10/23/18 11:06 BP 138/77 10/23/18 11:06 Pulse Ox 98 10/23/18 11:06 Intake & Output 10/22/18 10/23/18 10/23/18 18:59 06:59 18:59 Intake Total 750 600 118 Balance 750 600 118 Weight 61.235 kg Intake: IV 310 600 Sodium Chloride 0.9% 1, 100 600 000 ml @ 100 mls/hr IV . Q10H [facility] Rx#:[id number] Oral 440 118 Other: Voiding Method Toilet Toilet # Voids 1 2 - Exam PHYSICAL EXAMINATION: GENERAL: 48-year-old female in no acute distress at the time of my examination HEENT: Head is atraumatic, normocephalic. Pupils equal, round. Sclera anicteric. Conjunctiva are clear. Mucous membranes of the mouth are moist. Neck is supple. There is no elevated jugular venous pressure. No carotid bruit is heard. HEART EXAMINATION: Heart S1, S2 normal. No murmur or gallop heard. CHEST EXAMINATION: Lungs are clear to auscultation and precussion. No chest wall tenderness is noted on palpation or with deep breathing. ABDOMEN: Soft, nontender. Bowel sounds are heard. No organomegaly noted. EXTREMITIES: 2+ peripheral pulses with no evidence of peripheral edema and no calf tenderness noted. Right groin soft, no evidence of any hematoma. NEUROLOGIC patient is awake, alert and oriented 3 . . - Labs CBC & Chem 7: 10/22/18 03:59 10/23/18 05:24 Assessment and Plan Plan: Assessment and plan #1 status post angioplasty and stenting of the right coronary artery #2 hypertension #3 hyperlipidemia #4 PTSD #5 daily marijuana use #5 chronic nicotine dependence Plan Echocardiogram with Doppler study was performed which revealed an ejection fraction of 60-65%. From cardiology's perspective, patient may be able to be discharged home today. A follow-up appointment will be made with Dr. Johnson in the office in one week. Patient will be discharged home on aspirin 81 mg daily, Lipitor 80 mg daily, Plavix 75 mg daily, Lopressor 25 mg one tablet by mouth twice a day and sublingual nitroglycerin as needed for chest pain. DNP note has been reviewed, I agree with a documented findings and plan of care. Patient was seen and examined.
--- NOTE | 2018-10-23 17:18 | P.DS ---
Providers Date of admission: 10/21/18 21:05 Attending physician: Bruce Caputo MD Consults: 10/21/18 23:42 Consult Physician Routine Consulting Provider: Cardiology Kirk Consult Reason/Comments: moderate risk chest pain Do you want consulting provider notified?: Yes, Notify in am 10/22/18 11:01 Consult Physician Routine Consulting Provider: Reji Bradley Consult Reason/Comments: Post Interventional patient Do you want consulting provider notified?: Already Contacted Primary care physician: [facility] Course: 48-year-old pleasant female in the known smoking history hypertension dyslipidemia came in with complaints of chest pain did have significant family history chest pain was the precordial pressure-like somewhat typical associated shortness of breath, EKG did not show any significant abnormalities. Because of the typical nature of the chest pain patient underwent cardiac catheterization which showed significant occlusion in mid RCA which was stented and there was a 50% occlusion at the LAD and OM1 bifurcation. Patient is presently post cardiac catheterization with a FemoStop in the right groin area and attempted and failed cannulation of the right radial. Counseling regarding smoking cessation was provided patient is on dual antiplatelet therapy beta michelle and statin 10/23/2018 Patient is clinically doing well is being discharged today after extensive counseling. PHYSICAL EXAMINATION: GENERAL: The patient is alert and oriented x3, not in any acute distress. Well developed, well nourished. HEENT: Pupils are round and equally reacting to light. EOMI. No scleral icterus. No conjunctival pallor. Normocephalic, atraumatic. No pharyngeal erythema. No thyromegaly. CARDIOVASCULAR: S1 and S2 present. No murmurs, rubs, or gallops. PULMONARY: Chest is clear to auscultation, no wheezing or crackles. ABDOMEN: Soft, nontender, nondistended, normoactive bowel sounds. No palpable organomegaly. MUSCULOSKELETAL: No joint swelling or deformity. EXTREMITIES: No cyanosis, clubbing, or pedal edema. NEUROLOGICAL: Gross neurological examination did not reveal any focal deficits. SKIN: No rashes. Please operative hpf from yesterday for further details of hospitalization course. Patient Condition at Discharge: Good Plan - Discharge Summary Discharge Rx Participant: No New Discharge Prescriptions: New Aspirin 81 mg PO DAILY #30 chew Atorvastatin [Lipitor] 80 mg PO HS #30 tab Metoprolol Tartrate [Lopressor] 25 mg PO BID #60 tab Nitroglycerin Sl Tabs [Nitrostat] 0.4 mg SUBLINGUAL Q5M PRN #25 tab PRN Reason: Chest Pain Clopidogrel [Plavix] 75 mg PO DAILY #30 tab No Action Prazosin [Minipress] 10 mg PO HS Multivitamins, Thera [Multivitamin (formulary)] 1 tab PO DAILY DULoxetine HCL [Cymbalta] 30 mg PO DAILY Focus 1 tab PO DAILY Discharge Medication List DULoxetine HCL [Cymbalta] 30 mg PO DAILY 10/21/18 [History] Focus 1 tab PO DAILY 10/21/18 [History] Multivitamins, Thera [Multivitamin (formulary)] 1 tab PO DAILY 10/21/18 [History] Prazosin [Minipress] 10 mg PO HS 10/21/18 [History] Aspirin 81 mg PO DAILY #30 chew 10/23/18 [Rx] Atorvastatin [Lipitor] 80 mg PO HS #30 tab 10/23/18 [Rx] Clopidogrel [Plavix] 75 mg PO DAILY #30 tab 10/23/18 [Rx] Metoprolol Tartrate [Lopressor] 25 mg PO BID #60 tab 10/23/18 [Rx] Nitroglycerin Sl Tabs [Nitrostat] 0.4 mg SUBLINGUAL Q5M PRN #25 tab 10/23/18 [Rx] Follow up Appointment(s)/Referral(s): June Albarado MD [Primary Care Provider] - 11/01/18 1:00 pm Gary Bobo MD [STAFF PHYSICIAN] - 10/31/18 4:30 pm Patient Instructions/Handouts: How to Stop Smoking (DC), Heart Healthy Diet (DC), Coronary Intravascular Stent Placement (DC) Discharge Disposition: HOME SELF-CARE
[2018-10-23] MEDS ORDERED: ATORVASTATIN 80 MG TAB PO SCH (21:00)
[2018-10-23] MEDS ORDERED: METOPROLOL TARTRATE 25 MG TAB PO SCH (21:00)
[2018-10-23] MEDS ORDERED: PRAZOSIN 1 MG CAP PO SCH (21:00)
== END 2018-10-23 13:05 | disposition home or self-care (01) ==
LOC: EC 17:17 → 1SOBS 21:05 → 3SCARD 10-22 10:55
PROVIDERS: ADMIT Internal Medicine; ATTEND Internal Medicine
DX: I25.110 Atherosclerotic heart disease of native coronary artery with unstable angina pectoris (principal); I10 Essential (primary) hypertension; E78.00 Pure hypercholesterolemia, unspecified; E78.5 Hyperlipidemia, unspecified; G89.29 Other chronic pain; M54.2 Cervicalgia; F31.9 Bipolar disorder, unspecified; F90.9 Attention-deficit hyperactivity disorder, unspecified type; F43.10 Post-traumatic stress disorder, unspecified; F41.9 Anxiety disorder, unspecified; F17.200 Nicotine dependence, unspecified, uncomplicated; F23 Brief psychotic disorder; F12.90 Cannabis use, unspecified, uncomplicated; Z79.899 Other long term (current) drug therapy; Z91.040 Latex allergy status; Z88.5 Allergy status to narcotic agent; Z90.49 Acquired absence of other specified parts of digestive tract; Z82.49 Family history of ischemic heart disease and other diseases of the circulatory system; Z81.8 Family history of other mental and behavioral disorders; Z82.3 Family history of stroke; Z83.49 Family history of other endocrine, nutritional and metabolic diseases
CPT/HCPCS: 99152; 99153 ×2; 99285; 36415; 93005; 93306; 93458; 83880; 80061; 80053; 80048; 82565; 82009; 84484 ×2; 85025 ×2; 81025; 83036; 71046; G0378 ×4; C9600; C1887 ×5; C1725; C1769 ×4; C1894 ×2; C1874; J2001; J3010; J1644; J1170; J0583; Q9967; J2250